=== PATIENT | female | born 1980 | race Hispanic/Latino ===

== ENCOUNTER 2019-04-17 10:23 | Emergency (ER) | payer SELFPAY | END 2019-04-17 12:02 | disposition home or self-care (01) | LOC: NAV ERS 10:23 | DX: J06.9 Acute upper respiratory infection, unspecified (principal); K21.9 Gastro-esophageal reflux disease without esophagitis; F17.210 Nicotine dependence, cigarettes, uncomplicated | CPT/HCPCS: 99281 ==